=== PATIENT | male | born 1960 | race African-American/Black ===

== ENCOUNTER 2020-05-19 07:00 | Emergency (ER) | payer OTHER ==
[~2020-05-19] VITALS: Ht 167.6 cm; Wt 82.0 kg
[2020-05-19 07:02] VITALS: BP 149/95
[2020-05-19] MEDS ORDERED: KETOROLAC 60MG/2ML VIAL IM ONE (07:15)
[2020-05-19] MEDS ORDERED: DIAZEPAM 5 MG TABLET PO ONE (07:15)
== END 2020-05-19 09:00 | disposition home or self-care (01) ==
LOC: ER 07:00
DX: M54.42 Lumbago with sciatica, left side (principal); M71.22 Synovial cyst of popliteal space [Baker], left knee; M81.0 Age-related osteoporosis without current pathological fracture
CPT/HCPCS: 93971; 96372; 99284; J1885